=== PATIENT | female | born 1965 | race Hispanic/Latino ===

== ENCOUNTER 2019-05-05 10:07 | Emergency (ER) | payer OTHER ==
--- OUTSIDE RECORDS SUMMARY | 2019-05-05 10:10 | XMS REPORT ---
:1965 Author Organization eClinicalWorks Care Team Providers Name Role Phone Hillary Mullins Provider Role Unavailable Allergies No Known Allergies Problems No Known Problems Medications No Known Medications Results No Known Results Summary Purpose eClinicalWorks Submission
--- OUTSIDE RECORDS SUMMARY | 2019-05-05 10:10 | XMS REPORT ---
:1965 [facility] Address [address] [place] [address] [address] [place] [address] Care Team Providers Name Role Phone Unavailable Unavailable Unavailable Problems This patient has no known problems. Allergies, Adverse Reactions, Alerts This patient has no known allergies or adverse reactions. Medications This patient has no known medications.
--- OUTSIDE RECORDS SUMMARY | 2019-05-05 10:10 | XMS REPORT ---
:1965 Author Organization e[employer]Works Care Team Providers Name Role Phone HarpreetHillary romano Provider Role Unavailable Allergies, Adverse Reactions, Alerts Substance Reaction Event Type N.K.D.A. Info Not Available Non Drug Allergy Problems Problem Type Condition Code Onset Dates Condition Status Assessment Microhematuria R31.29 Active Medications Medication Code Code Instructions Start End Status Dosage System Date Date Vitamin B12 [facility] 89586926668 100 MCG Orally Active not defined Premarin [facility] 52837586789 0.625 MG/GM Active not Vaginal defined Pantoprazole [facility] 34286883267 40 MG Orally Active 1 tablet Sodium Once a day Results Name Result Date Reference Range Unit Abnormality Flag URINALYSIS AUTO W/O SCOPE ([id number]) ----CHANEL trace [id number] ----NIT neg [id number] ----PROTEIN neg [id number] ----pH 7.0 [id number] ----GLUCOSE neg [id number] ----KETONES neg [id number] ----SPECIFIC GRAVITY 1.015 [id number] ----BLO 2+ [id number] Summary Purpose eClinicalWorks Submission
--- OUTSIDE RECORDS SUMMARY | 2019-05-05 10:10 | XMS REPORT ---
:1965 Author Organization eClinicalWorks Care Team Providers Name Role Phone Hillary Mullins Provider Role Unavailable Allergies No Known Allergies Problems No Known Problems Medications Medication Code Code Instructions Start End Status Dosage System Date Date Ciprofloxacin HCl [facility] 74044562646 500 MG Orally July 17July Active 1 tablet Take 1 tab 30 2017 02, minutes prior 2018 to procedure in office on 07-21-17 Results No Known Results Summary Purpose eClinicalWorks Submission
--- OUTSIDE RECORDS SUMMARY | 2019-05-05 10:10 | XMS REPORT ---
:1965 Author Organization eClinicalWorks Care Team Providers Name Role Phone Harpreet, Hillary Provider Role Unavailable Allergies, Adverse Reactions, Alerts Substance Reaction Event Type N.K.D.A. Info Not Available Non Drug Allergy Problems Problem Type Condition Code Onset Dates Condition Status Assessment Microhematuria R31.29 Active Medications Medication Code Code Instructions Start End Status Dosage System Date Date Vitamin B12 [facility] 95519285444 100 MCG Orally Active not defined Premarin [facility] 35894230946 0.625 MG/GM Active not Vaginal defined Pantoprazole [facility] 65990824880 40 MG Orally Active 1 tablet Sodium Once a day Results Name Result Date Reference Range Unit Abnormality Flag URINALYSIS AUTO W/O SCOPE ([id number]) ----CHANEL NEG [id number] ----NIT NEG [id number] ----PROTEIN NEG [id number] ----pH 7.0 20170605 ----GLUCOSE NEG [id number] ----KETONES NEG [id number] ----SPECIFIC GRAVITY 1.020 [id number] ----BLO 1+ [id number] PVR ----PVR 0 [id number] Summary Purpose eClinicalWorks Submission
[2019-05-05 11:04] LABS: Absolute Lymphocytes (CBC) 2.3 K/uL (0.7-4.9); Basophils % 0.6 % (0-1.3); Hematocrit 40.9 % (36.0-45.0); Lymphocytes % 46.7 % (15.3-44.8); MPV 7.1 fL (7.6-11.3); Protime INR 0.94; RBC Red Blood Cell Count 4.26 M/uL (3.86-4.86)
[2019-05-05 11:24] LABS: ALT/SGPT 28 U/L (12-78); AST/SGOT 17 U/L (15-37); Albumin 3.9 g/dL (3.4-5.0); Alkaline Phosphatase 76 U/L (45-117); BUN Blood Urea Nitrogen 13 mg/dL (7-18); Bicarbonate 27 mmol/L (21-32); Bilirubin Direct 0.1 mg/dL (0-0.2); Bilirubin Total 0.4 mg/dL (0.2-1.0); Glucose Level 93 mg/dL (74-106); Magnesium 2.3 mg/dL (1.8-2.4); NT PRO-BNP 108 pg/mL (<125); Potassium 3.8 mmol/L (3.5-5.1); Protein, Total 7.7 g/dL (6.4-8.2); Sodium Level 140 mmol/L (136-145); Troponin (Emerg Dept Use Only) < 0.02 ng/mL (0.0-0.045)
--- NOTE | 2019-05-05 11:41 | RAD REPORT ---
EXAM DESCRIPTION: RAD - Chest Single View - 05/05/2019 11:25 am CLINICAL HISTORY: Chest pain;Dyspnea COMPARISON: April 2019 TECHNIQUE: AP portable chest image was obtained 05/05/2019 11:25 am . FINDINGS: Lungs are clear. Heart and vasculature are normal. No measurable pleural effusion and no p neumothorax. No acute bony abnormality seen. No acute aortic findings suspected. IMPRESSION: No acute cardiopulmonary process. No significant interval change.
--- NOTE | 2019-05-05 14:17 | ER ---
Nurse's Notes [facility] Name: Violet León Age: 53 yrs Sex: Female : 1965 Arrival Date: 05/05/2019 Time: 10:11 Bed 8 Private MD: Diagnosis: Pleurisy Presentation: 05/04 10:15 Chief complaint: Patient states: diagnosed with pneumonia last week, finished abx, left iw side of chest and left arm has been hurting for past two days, feels heavy , intermittent every 15 minutes, last a few minutes. denies fever. Coronavirus screen: The patient has NOT traveled to a country currently being monitored by the [facility] within the last 14 days. Proceed with normal triage procedures. The patient has NOT had contact with any known and/or suspected case of coronavirus. Proceed with normal triage procedures. Ebola Screen: Patient negative for fever greater than or equal to 101.5 degrees Fahrenheit, and additional compatible Ebola Virus Disease symptoms Patient denies exposure to infectious person. Patient denies travel to an Ebola-affected area in the 21 days before illness onset. No symptoms or risks identified at this time. Initial Sepsis Screen: Does the patient meet any 2 criteria? No. Patient's initial sepsis screen is negative. Does the patient have a suspected source of infection? No. Patient's initial sepsis screen is negative. Risk Assessment: Do you want to hurt yourself or someone else? Patient reports no desire to harm self or others. 10:15 Method Of Arrival: Ambulatory iw 10:15 Acuity: SOLO 2 iw 10:15 Onset of symptoms was May 03, 2019. 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 - Social history:: Smoking status: Patient denies any tobacco usage or history of. Screenin:30 Abuse screen: Denies threats or abuse. Denies injuries from another. Nutritional sv screening: No deficits noted. Tuberculosis screening: No symptoms or risk factors identified. Fall Risk None identified. Assessment: 10:30 General: Appears in no apparent distress. uncomfortable, well groomed, well developed, sv Behavior is calm, cooperative, appropriate for age. Pain: Complains of pain in anterior aspect of left upper chest and left breast Pain radiates to left arm Pain currently is 10 out of 10 on a pain scale. Quality of pain is described as heavy, Pain began suddenly, Alleviated by nothing. Noted to be quiet/stoic. Neuro: Level of Consciousness is awake, alert, obeys commands, Oriented to person, place, time, situation, Moves all extremities. Full function Gait is steady. Cardiovascular: Patient's skin is warm and dry. Rhythm is sinus rhythm. Respiratory: Airway is patent Respiratory effort is even, unlabored, Respiratory pattern is regular, symmetrical. Respiratory: Reports cough that is productive. Derm: Skin is pink, warm \T\ dry. 12:00 Reassessment: Patient appears in no apparent distress at this time. No changes from sv previously documented assessment. Patient and/or family updated on plan of care and expected duration. Pain level reassessed. Patient is alert, oriented x 3, equal unlabored respirations, skin warm/dry/pink. 13:30 Reassessment: Patient appears in no apparent distress at this time. No changes from sv previously documented assessment. Patient and/or family updated on plan of care and expected duration. Pain level reassessed. Patient is alert, oriented x 3, equal unlabored respirations, skin warm/dry/pink. 15:15 Reassessment: Patient appears in no apparent distress at this time. Patient and/or sv family updated on plan of care and expected duration. Pain level reassessed. Patient is alert, oriented x 3, equal unlabored respirations, skin warm/dry/pink. Vital Signs: 10:15 BP 132 / 77; Pulse 60; Resp 16; Temp 97.8; Pulse Ox 97% on R/A; Weight 84.82 kg; Height iw 5 ft. 1 in. (154.94 cm); Pain 10/10; 11:00 BP 108 / 60; Pulse 53; Resp 17; Pulse Ox 96% ; sv 11:51 BP 109 / 70; Pulse 53; Resp 12; Pulse Ox 98% ; sv 12:30 BP 118 / 74; Pulse 56; Resp 17; Pulse Ox 96% ; sv 13:30 BP 106 / 61; Pulse 52; Resp 14; Pulse Ox 98% ; sv 10:15 Body Mass Index 35.33 (84.82 kg, 154.94 cm) ED Course: 10:11 Patient arrived in ED. fj1 10:18 Triage completed. iw 10:19 Arm band placed on. iw 10:21 Patti Gil, RN is Primary Nurse. sv 10:23 Yoel Glover PA is PHCP. jr8 10:23 Lance Dalton MD is Attending Physician. jr8 10:30 Patient has correct armband on for positive identification. Placed in gown. Bed in low sv position. Call light in reach. media monitor on. Pulse ox on. NIBP on. Droplet isolation initiated. 10:30 First set of blood cultures drawn by me. Inserted saline lock: 20 gauge in right sv antecubital area, using aseptic technique. Blood collected. Flushed right antecubital with 5 ml normal saline. 10:30 Patient maintains SpO2 saturation greater than 95% on room air. sv 10:45 Second set of blood cultures drawn by me. sv 11:24 XRAY Chest (1 view) In Process Unspecified. EDMS 15:15 No provider procedures requiring assistance completed. IV discontinued, intact, sv bleeding controlled, No redness/swelling at site. Pressure dressing applied. Administered Medications: No medications were administered Outcome: 14:16 Discharge ordered by . jr8 15:16 Discharged to home ambulatory. sv 15:16 Condition: stable 15:16 Discharge instructions given to patient, Instructed on discharge instructions, follow up and referral plans. medication usage, Demonstrated understanding of instructions, follow-up care, medications, Prescriptions given X 2. 15:16 Patient left the ED. sv Signatures: Dispatcher [employer] EDMS Patti Gil, MULU HARDWICK Maria De Jesus Gann RN RN Yoel Glover PA PA jr8 Kentrell Mcgill fj1
--- NOTE | 2019-05-05 14:17 | EDPHYS ---
Physician Documentation [facility] Name: Violet León Age: 53 yrs Sex: Female : 1965 Arrival Date: 05/05/2019 Time: 10:11 Bed 8 Private MD: ED Physician Lance Dalton HPI: 05/04 10:53 This 53 yrs old Female presents to ER via Ambulatory with complaints of Chest jr8 Pain > 30 y/o. 10:53 The patient or guardian reports chest pain that is located primarily in the substernal jr8 area, anterior chest wall, left. Onset: acutely, today. The pain radiates to the left arm. Associated signs and symptoms: Pertinent positives: cough, shortness of breath. The chest pain is described as a pressure. Duration: The patient or guardian reports multiple episodes. Modifying factors: The symptoms are alleviated by nothing. the symptoms are aggravated by cough, deep breath. Severity of pain: At its worst the pain was mild in the emergency department the pain is unchanged. The patient has not experienced similar symptoms in the past. The patient has been recently seen by a physician:. Patient stated that a little over a week ago had "flu like" symptoms. Bodyaches, cough, congestion, sore throat. Saw PCP at that time and was diagnosed with pneumonia and put on Abx. Had f/u with xray this past Thursday showing no acute pulmonary findings. Came to ED today because she started to have CP that radiated . 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 - Social history:: Smoking status: Patient denies any tobacco usage or history of. ROS: 10:53 Eyes: Negative for injury, pain, redness, and discharge, ENT: Negative for injury, jr8 pain, and discharge, Neck: Negative for injury, pain, and swelling, Abdomen/GI: Negative for abdominal pain, nausea, vomiting, diarrhea, and constipation, Back: Negative for injury and pain, MS/Extremity: Negative for injury and deformity, Skin: Negative for injury, rash, and discoloration, Neuro: Negative for headache, weakness, numbness, tingling, and seizure. 10:53 Cardiovascular: Positive for chest pain, Negative for edema, orthopnea, palpitations, paroxysmal nocturnal dyspnea. 10:53 Respiratory: Positive for cough, shortness of breath, Negative for orthopnea, sputum production, wheezing. Exam: 10:53 Eyes: Pupils equal round and reactive to light, extra-ocular motions intact. Lids and jr8 lashes normal. Conjunctiva and sclera are non-icteric and not injected. Cornea within normal limits. Periorbital areas with no swelling, redness, or edema. ENT: Nares patent. No nasal discharge, no septal abnormalities noted. Tympanic membranes are normal and external auditory canals are clear. Oropharynx with no redness, swelling, or masses, exudates, or evidence of obstruction, uvula midline. Mucous membranes moist. Neck: Trachea midline, no thyromegaly or masses palpated, and no cervical lymphadenopathy. Supple, full range of motion without nuchal rigidity, or vertebral point tenderness. No Meningismus. Cardiovascular: Regular rate and rhythm with a normal S1 and S2. No gallops, murmurs, or rubs. Normal PMI, no JVD. No pulse deficits. Respiratory: Lungs have equal breath sounds bilaterally, clear to auscultation and percussion. No rales, rhonchi or wheezes noted. No increased work of breathing, no retractions or nasal flaring. Abdomen/GI: Soft, non-tender, with normal bowel sounds. No distension or tympany. No guarding or rebound. No evidence of tenderness throughout. Back: No spinal tenderness. No costovertebral tenderness. Full range of motion. Skin: Warm, dry with normal turgor. Normal color with no rashes, no lesions, and no evidence of cellulitis. MS/ Extremity: Pulses equal, no cyanosis. Neurovascular intact. Full, normal range of motion. Neuro: Awake and alert, GCS 15, oriented to person, place, time, and situation. Cranial nerves II-XII grossly intact. Motor strength 5/5 in all extremities. Sensory grossly intact. Cerebellar exam normal. Normal gait. 10:56 ECG was reviewed by the Attending Physician. [facility] Vital Signs: 10:15 BP 132 / 77; Pulse 60; Resp 16; Temp 97.8; Pulse Ox 97% on R/A; Weight 84.82 kg; Height iw 5 ft. 1 in. (154.94 cm); Pain 10/10; 11:00 BP 108 / 60; Pulse 53; Resp 17; Pulse Ox 96% ; sv 11:51 BP 109 / 70; Pulse 53; Resp 12; Pulse Ox 98% ; sv 12:30 BP 118 / 74; Pulse 56; Resp 17; Pulse Ox 96% ; sv 13:30 BP 106 / 61; Pulse 52; Resp 14; Pulse Ox 98% ; sv 10:15 Body Mass Index 35.33 (84.82 kg, 154.94 cm) iw MDM: 10:41 Patient medically screened. jr8 14:13 Data reviewed: vital signs, nurses notes, lab test result(s), EKG, radiologic studies, jr8 plain films. Counseling: I had a detailed discussion with the patient and/or guardian regarding: the historical points, exam findings, and any diagnostic results supporting the discharge/admit diagnosis, lab results, radiology results, the need for outpatient follow up, a family practitioner, to return to the emergency department if symptoms worsen or persist or if there are any questions or concerns that arise at home. ED course: explained to patient that it is most likely pleurisy what she is experiencing. Recommend steroids and NSAID for now. To continue to quarantine for next 7 days . 05/04 10:43 Order name: Basic Metabolic Panel; Complete Time: 11:05/04 10:43 Order name: CBC with Diff; Complete Time: 11:05/04 10:43 Order name: LFT's; Complete Time: :05/04 10:43 Order name: Magnesium; Complete Time: 11:05/04 10:43 Order name: NT PRO-BNP; Complete Time: 11:05/04 10:43 Order name: PT-INR; Complete Time: 11:05/04 10:43 Order name: Troponin (emerg Dept Use Only); Complete Time: 11:05/04 10:43 Order name: XRAY Chest (1 view); Complete Time: 11:55 05/04 10:43 Order name: EKG; Complete Time: 10:44 05/04 10:43 Order name: Cardiac monitoring; Complete Time: 10:56 05/04 10:43 Order name: Influenza Screen (a \\T\\ B); Complete Time: 11:30 05/04 10:43 Order name: Procalcitonin; Complete Time: 11:39 05/04 10:43 Order name: Blood Culture Adult (2) 05/04 13:18 Order name: Troponin (emerg Dept Use Only); Complete Time: 14:12 05/04 10:43 Order name: EKG - Nurse/Tech; Complete Time: 10:56 05/04 10:43 Order name: IV Saline Lock; Complete Time: 10:56 05/04 10:43 Order name: Labs collected and sent; Complete Time: 10:05/04 10:43 Order name: O2 Per Protocol; Complete Time: 10:05/04 10:43 Order name: O2 Sat Monitoring; Complete Time: : EC:56 Rate is 57 beats/min. Rhythm is irregular, Sinus bradycardia. QRS [place] is Normal. [place] jr8 interval is normal at 160 msec. QRS interval is normal at 82 msec. QT interval is normal at 397 msec. Q waves are Present in leads III, V1. T waves are Inverted in lead V1. T waves are Flattened in lead III. No ST changes noted. Clinical impression: NSR w/ Non-specific ST/T Changes, Sinus bradycardia, and No evidence of ischemia. Interpreted by me. Reviewed by me. Administered Medications: No medications were administered Disposition: 18:31 Co-signature as Attending Physician, Lance Dalton MD Signature for administrative ps1 purposes. Did not see or evaluate patient. . Disposition: 05/05/19 14:16 Discharged to Home. Impression: Pleurisy. - Condition is Stable. - Discharge Instructions: Pleurisy. - Prescriptions for Ibuprofen 800 mg Oral Tablet - take 1 tablet by ORAL route every 12 hours As needed take with food; 20 tablet. Medrol (Dariusz) 4 mg Oral Tablets, Dose Pack - take 1 tablet by ORAL route as directed - follow package instructions; 1 packet. - Medication Reconciliation Form, Thank You Letter, Antibiotic Education, Prescription Opioid Use form. - Follow up: Private Physician; When: 1 week; Reason: If symptoms return, Recheck today's complaints, Continuance of care, Re-evaluation by your physician. - Problem is new. - Symptoms have improved. Signatures: Dispatcher [employer] Patti Maria RN RN sv Williams, Irene, RN RN iw Roszak, Josh, PA PA jr8 Lance Dalton MD MD ps1 Corrections: (The following items were deleted from the chart) 15:16 14:16 05/05/2019 14:16 Discharged to Home. Impression: Pleurisy. Condition is Stable. sv Forms are Medication Reconciliation Form, Thank You Letter, Antibiotic Education, Prescription Opioid Use. Follow up: Private Physician; When: 1 week; Reason: If symptoms return, Recheck today's complaints, Continuance of care, Re-evaluation by your physician. Problem is new. Symptoms have improved. jr8
[2019-05-05 15:47] VITALS: TEMP 97.8
[2019-05-05 15:53] VITALS: BP 106/61; O2SAT 98
--- NOTE | 2019-05-05 16:53 | EKG ---
Test Date: 2019-05-05 Test Time: 10:36:08 Guest Request Runner: MAGO MEASUREMENT RESULTS: Intervals: Rate: 57 WV: 160 QRSD: 82 QT: 408 QTc: 397 [place]: P: 44 WV: 160 QRS: 2 T: 29 INTERPRETIVE STATEMENTS: Sinus bradycardia Otherwise normal ECG Compared to ECG 11/08/2012 18:40:53 Myocardial infarct finding no longer present Electronically Signed On 05-05-19 16:51:59 CDT by Riaz Barroso
== END 2019-05-05 15:16 | disposition home or self-care (01) ==
LOC: ER 10:07
DX: R09.1 Pleurisy (principal)
CPT/HCPCS: 36415; 71045; 80048; 80076; 83735; 83880; 84145; 84484; 85025; 85610; 87040; 87804; 93005; 99285